=== PATIENT | male | born 1980 ===

== ENCOUNTER 2018-02-20 05:55 | Emergency (ER) | payer OTHER ==
[2018-02-20 06:14] VITALS: BP 108/66; PULSE 110; RESP 16; TEMP 100.3; O2SAT 99
--- NOTE | 2018-02-20 06:38 | C.PDOC ---
History Of Present Illness 37 year old male presents to the ER with a complaint of generalized body aches, fever, chills, and nasal congestion for the past 3 days. Patient tried using OTC contac for sinus and cold symptoms with no relief. Denies chest pain, SOB, abdominal pain, nausea, or vomiting. Time Seen by Provider: 02/20/18 06:05 Chief Complaint (Nursing): Fever History Per: Patient History/Exam Limitations: no limitations Onset/Duration Of Symptoms: Days Current Symptoms Are (Timing): Still Present Location Of Pain: Diffuse Myalgias Sick Contacts (Context): None Associated Symptoms: Fever, Chills, Myalgias, Nasal Congestion. denies: Nausea , Vomiting, Other (Chest pain, SOB, abdominal pain) Ear Symptoms: Bilateral: None Recent travel outside of the [place]: No Past Medical History Reviewed: Historical Data, Nursing Documentation, Vital Signs Vital Signs: Last Vital Signs Temp 100.3 F H 02/20/18 06:02 Pulse 110 H 02/20/18 06:02 Resp 16 02/20/18 06:02 BP 108/66 02/20/18 06:02 Pulse Ox 99 02/20/18 06:43 - Medical History PMH: No Chronic Diseases Surgical History: No Surg Hx Family History: States: Unknown Family Hx - Social History Hx Alcohol Use: Yes Hx Substance Use: No - Immunization History Hx Influenza Vaccination: No Hx Pneumococcal Vaccination: No Review Of Systems Constitutional: Positive for: Fever, Chills ENT: Positive for: Nose Congestion Cardiovascular: Negative for: Chest Pain Respiratory: Negative for: Shortness of Breath Gastrointestinal: Negative for: Nausea, Vomiting, Abdominal Pain Musculoskeletal: Positive for: Other (Generalized body aches) Physical Exam - Physical Exam Appears: Non-toxic Skin: Normal Color, Warm, Dry Head: Atraumatic, Normacephalic Eye(s): bilateral: Normal Inspection Ear(s): Bilateral: Normal Nose: Normal Oral Mucosa: Moist Throat: Normal, No Erythema, No Exudate Neck: Normal, Supple Chest: Symmetrical, No Tenderness Cardiovascular: Rhythm Regular Respiratory: Normal Breath Sounds, No Rales, No Rhonchi, No Wheezing Gastrointestinal/Abdominal: Soft, No Tenderness Back: No CVA Tenderness Neurological/Psych: Oriented x3, Normal Speech ED Course And Treatment O2 Sat by Pulse Oximetry: 99 (Room air) Pulse Ox Interpretation: Normal Progress Note: Motrin administered. Patient is resting comfortably in the ER in no acute distress, vitals are stable, will discharge home with instructions to take antipyretics as needed for fever and follow up with PMD or return if symptoms worsen. Disposition Counseled Patient/Family Regarding: Diagnosis, Need For Followup, Rx Given - Disposition Referrals: [facility] [Outside] Disposition: HOME/ ROUTINE Disposition Time: 06:52 Condition: STABLE Additional Instructions: Increase PO fluids Bed Rest Take meds as directed Return to ER if worse Prescriptions: Cetirizine HCl [Zyrtec] 10 mg PO DAILY #14 capsule Ibuprofen [Motrin] 600 mg PO Q6H #24 tab Instructions: Viral Upper Respiratory Infection, Adult (DC) Forms: [employer] (Kyrgyz) Print Language: LAO - Clinical Impression Clinical Impression: Viral illness - PA / [employer] / Resident Statement MD/DO has reviewed & agrees with the documentation as recorded. - Scribe Statement The provider has reviewed the documentation as recorded by the Scribe Carlos A Garcia All medical record entries made by the Lauryibe were at my direction and personally dictated by me. I have reviewed the chart and agree that the record accurately reflects my personal performance of the history, physical exam, medical decision making, and the department course for this patient. I have also personally directed, reviewed, and agree with the discharge instructions and disposition.
== END 2018-02-20 07:00 | disposition home or self-care (01) ==
LOC: C.ER 05:55
DX: B34.9 Viral infection, unspecified (principal)